=== PATIENT | male | born 1965 | race Caucasian/White ===

== ENCOUNTER 2025-03-12 11:36 | Outpatient (REF) | payer SELFPAY ==
--- NOTE | ~2025-03-12 | XR_ITS ---
EXAMINATION: XR FOOT, LEFT CLINICAL INFORMATION: Foot laceration, left, initial encounter COMPARISON: None available. TECHNIQUE: AP, lateral, and oblique views of the left foot. FINDINGS: No fracture, dislocation, or suspicious bone lesion. Normal bone mineralization. Normal alignment. Joint spaces are preserved. No significant arthropathy. Soft tissues appear normal. No radiopaque foreign body or soft tissue emphysema. XR/XR foot LT min 3V IMPRESSION: Normal left foot. Electronically signed by: Kevin Perry MD 03/12/2025 11:57 AM EDT
--- OUTSIDE RECORDS SUMMARY | 2025-03-12 11:43 | XMS_ITS | Clinical Summary ---
Author Organization [employer] Address [address] [facility] 7t [place] [address] Care Team Providers Care Case Technician Name Role Phone Megan Fofana [facility] Primary Care Provider [phone] Allergies No known active allergies Medications fluticasone (Flonase) 50 MCG/ACT nasal sprayIndications: COVID-19 Administer 1-2 sprays into each nostril Once per day. Shake gently. Before first use, prime pump. After use, clean tip and replace cap. 16 g 2 5 07/31/19 26 Active Blood Pressure kitIndications:El evated blood pressure reading in office without diagnosis of hypertension Use as directed 1 kit 5 Active ibuprofen 600 MG tabletIndications :COVID-19 TAKE 1 TABLET (600 MG) BY MOUTH EVERY 6 (SIX) HOURS IF NEEDED FOR MILD PAIN. 60 tablet 5 Active Active Problems No known active problems Encounters Date Type Department Care Team Description 03/12/2025 11:00 AM EDT Office Visit [facility] [address] [place] [phone] Foot laceration, left, initial encounter (Primary Dx) 03/12/2025 Travel 03/10/2025 Refill [facility] [address] [place] [address] Megan Fofana FNP COVID-19 02/19/2025 Telephone [facility] [address] [place] [address] Megan Fofana FNP 02/18/2025 Telephone [facility] [address] [place] [address] Megan Fofana FNP chart prep 12/23/2024 Telephone [facility] [address] [place] [address] Megan Fofana MEDICAL CENTER MANAGER Appointment Request 12/23/2024 Telephone [facility] [address] [facility] [place] [address] Megan Fofana FNP Appointment Request 12/22/2024 Telephone [facility] [address] [facility] [place] [address] Megan Fofana MEDICAL CENTER MANAGER chart prep from Last 3 Months Immunizations Immunization Administration Dates Next Due Tdap 09/28/2024,03/10/2009 Social History Tobacco Use Types Packs/Day Years Used Date Smoking Tobacco: Never Passive Smoke Exposure: Never Smokeless Tobacco: Never Tobacco Cessation:Counseling Given: Not Answered Depression Answer Date Recorded Patient Health Questionnaire-9 Score 0 09/28/2024 Patient Health Questionnaire-9 Score 0 09/28/2024 Last PHQ-9: Questionnaire Data Not on file 0 09/28/2024 Housing Stability Answer Date Recorded What is your housing situation today? I have danie ray 09/28/[address] you li ve. Do you have problems with any of the following? None of the above 09/28/2024 Food Insecurity Answer Date Recorded Within the past 12 months, y ou worried that your food would run out before you got money to buy more: Never True 09/28/2024 Within the past 12 months,th e food you bought just didn't last and you didn't have enough money to get more: Never True 04/2025 Transportation Answer Date Recorded In the past 12 months, has l ack of transportation kept you from medical appts, meetings, work or from getting things needed for daily living? No 09/28/2024 Utilities Answer Date Recorded In the past 12 months, has t he electric, gas, oil or water company threatened to shut off services in your home? No 09/28/2024 Depression Answer Date Recorded Patient Health Questionnaire-2 Score 0 09/28/2024 Internet Access Answer Date Recorded Internet Access Q1 Yes 09/28/2024 Internet Access Q2 Not on file 09/28/2024 Sex and Gender Information Value Date Recorded Sex Assigned at Male 07/03/2024 4:02 PM EST Legal Sex Male 10:33 AM EST Gender Identity Male 07/03/2024 4:02 PM EST Sexual Orientation Straight 07/31/2024 11 :59 AM EST Last Filed Vital Signs Vital Sign Reading Time Taken Comments Blood Pressure 147/87 03/12/2025 11:06 AM EDT Pulse 76 03/12/2025 11:06 AM EDT Temperature 36.8 C (98.3 F) 03/12/2025 11:06 AM EDT Respiratory Rate 18 03/12/2025 11:06 AM EDT Oxygen Saturation 97% 03/12/2025 11:06 AM EDT Inhaled Oxygen Concentration - - Weight 81.6 kg (180 lb) 03/12/2025 11:06 AM EDT Height 188 cm (6' 2 ) 09/28/2024 10:15 AM EDT Body Mass Index 23.11 09/28/2024 10:15 AM EDT Plan of Treatment Health Maintenance Due Date Last Done Comments CT Colonography 1967 Colonoscopy 1967 Colorectal Cancer Screening 1967 FIT DNA/Cologuard 1967 FIT 1967 FOBT 1967 HIV Screening 1965 Lipid Panel 1967 Sigmoidoscopy 1967 Disability Screening 1967 Alcohol/Substance Use Screening 1979 Hepatitis C Screening 09/25/1985 Hepatitis B Vaccines (1 of 3 - 19+ 3-dose series) 09/25/1986 Pneumococcal Vaccine: 50+ Years (1 of 1 - PCV) 09/25/2017 Zoster Vaccines (1 of 2) 09/25/2017 COVID-19 Vaccine ( - 2023-2 5 season) 2024 Influenza Vaccine (#1) 2025 Depression Screening 09/28/2025 09/28/2024, 09/28/2024 SDOH Screening 09/28/2025 09/28/2024 Tobacco Screening 03/12/2026 03/12/2025 DTaP/Tdap/Td Vaccines (3 - T d or Tdap) 09/28/2034 09/28/2024, 03/10/2009 RSV Patients and Patients Aged 60 years or older (1 - 1-dose 75+ series) 09/25/2042 HIB Vaccines Aged Out No longer eligi ble based on patient's age to complete this topic HPV Vaccines Aged Out No longer eligi ble based on patient's age to complete this topic Hepatitis A Vaccines Aged Out No long er eligible based on patient's age to complete this topic IPV Vaccines Aged Out No longer eligi ble based on patient's age to complete this topic Meningococcal B Vaccine Aged Out No l onger eligible based on patient's age to complete this topic Meningococcal Vaccine Aged Out No florian nikolai eligible based on patient's age to complete this topic RSV under 20 months Aged Out No longe r eligible based on patient's age to complete this topic Rotavirus Vaccines Aged Out No longer eligible based on patient's age to complete this topic Insurance [facility] C3 Care Teams Case Technician Relationship Specialty Start Date End Date Megan Fofana FNP [address] [place] [phone] PCP - General Family Medicine 07/31/24
== END 2025-03-12 11:37 | disposition home or self-care (01) ==
LOC: HO.HHCX 11:36
PROVIDERS: Visit Provider Family Medicine
DX: S91.312A Laceration without foreign body, left foot, initial encounter (principal)
CPT/HCPCS: 73630

== ENCOUNTER → 2025-03-12 11:41 | Outpatient (BNV) | payer MEDICAID, SELFPAY | PROVIDERS: Visit Provider Radiology Diagnostic Radiology | DX: S91.312A Laceration without foreign body, left foot, initial encounter (principal) | CPT/HCPCS: 73630 ==

== ENCOUNTER 2025-05-10 16:06 | Outpatient (REF) | payer MEDICAID, SELFPAY ==
--- OUTSIDE RECORDS SUMMARY | 2025-05-10 15:20 | XMS_ITS | Encounter Summary ---
Author Organization [employer] Address [address] [facility] 7t [place] [address] Care Team Providers Care Window Cutter Name Role Phone Megan Fofana [facility] Primary Care Provider [phone] Reason for Visit * Reason Comments Tick Removal Encounter Details Date Type Department Care Team ([facility] st Contact Info) Description 05/10/2025 3:20 PM EDT Office Visit [facility] [address] [place], [place] [phone] Social History Tobacco Use Types Packs/Day Years [...] Orientation Straight 07/31/2024 11 :59 AM EST documented as of this encounter Last Filed Vital Signs Vital Sign Reading Time Taken Comments Blood Pressure 126/80 05/10/2025 3:31 PM EDT Pulse 73 05/10/2025 3:31 PM EDT Temperature 36.8 C (98.2 F) 05/10/2025 3:31 PM EDT Respiratory Rate 16 05/10/2025 3:31 PM EDT Oxygen Saturation - - Inhaled Oxygen Concentration - - Weight 81.4 kg (179 lb 6.4 oz) 05/10/2025 3:31 P M EDT Height 188 cm (6' 2 ) 05/10/2025 3:31 PM EDT Body Mass Index 23.03 05/10/2025 3:31 PM EDT documented in this encounter Plan of Treatment Upcoming Encounters Date Type Department Care Team (Late st Contact Info) Description 05/31/2025 10:00 AM EST Office Visit [facility] [address] [place] [address] Megan Fofana FNP [address] [place] [address] documented as of this encounter Visit Diagnoses Not on filedocumented in this encounter Additional Health Concerns Assessment Noted Time PHQ-9 Depression Total Score: 0 09/29/19 10:16 AM EDT documented as of this encounter Care Teams Window Cutter Relationship Specialty Start Date End Date Megan Fofana FNP [address] [place] [address] PCP - General Family Medicine 07/31/24 documented as of this encounter
[2025-05-10 17:34] LABS: Alanine Aminotransferase 146 U/L (0-40); Albumin Level 4.4 g/dL (3.5-5.0); Alkaline Phosphatase 81 U/L (39-117); Anion Gap 13 (12-20); Aspartate Amino Transferase 196 U/L (5-37); Blood Urea Nitrogen 16 mg/dL (9-16); Calcium 8.7 mg/dL (8.4-10.2); Carbon Dioxide 29 mmol/L (22-29); Chloride 104 mmol/L (96-108); Cholesterol 219 mg/dL (<200); Estimated Glomerular Filt Rate > 60; HDL Cholesterol 35 mg/dL (>40); Potassium 3.8 mmol/L (3.3-5.1); Sodium 142 mmol/L (135-145); Total Protein 7.2 g/dL (6.5-8.0); Triglycerides 182 mg/dL (<150)
[2025-05-10 17:48] LABS: Prostate Specific Antigen 2.90 ng/mL (<0.05-4.0)
[2025-05-10 19:13] LABS: Free T4 (Free Thyroxine) 0.79 ng/dL (0.71-1.85)
--- OUTSIDE RECORDS SUMMARY | 2025-05-10 20:24 | XMS_ITS | Clinical Summary ---
Author Organization [email or web address] Address [address] [facility] 7t [place] [address] Care Team Providers Care Electric Razor Assembler Name Role Phone Megan Fofana [facility] Primary Care Provider [phone] Allergies No known active allergies Medications fluticasone (Flonase) 50 MCG/ACT nasal sprayIndications :COVID-19 Administer 1-2 sprays into each nostril Once per day. Shake gently. Before first use, prime pump. After use, clean tip and replace cap. 16 g 2 07/31/19 25 026 Active Blood Pressure kitIndications:E levated blood pressure reading in office without diagnosis of hypertension Use as directed 1 kit 09/29/19 25 Active ibuprofen 600 MG tabletIndication s:COVID-19 TAKE 1 TABLET (600 MG) BY MOUTH EVERY 6 (SIX) HOURS IF NEEDED FOR MILD PAIN. 60 tablet 04/12/20 25 Active doxycycline (Vibra-Tabs) 100 MG tablet Take 1 tablet (100 mg) by mouth 2 times daily for 10 days. Take with a full glass of water and do not lie down for at least 30 minutes after. 20 tablet 05/10/20 25 025 Active ibuprofen 600 MG tabletIndication s:COVID-19 TAKE 1 TABLET (600 MG) BY MOUTH EVERY 6 (SIX) HOURS IF NEEDED FOR MILD PAIN. 60 tablet 03/29/20 25 025 Discontinued Active Problems No known active problems Encounters Date Type Department Care Team Description 05/10/2025 3:20 PM EDT Office Visit [facility] [address] [place], [place] [phone] 05/10/2025 Travel 04/09/[address] [facility] [address] [place] [address] Megan Fofana [facility] COVID-19 04/02/2025 9:45 AM EDT Office Visit [facility]OMET[facility] [address] [place] [address] Myopia of both eyes (Primary Dx) 03/27/[address] [facility] [address] [place] [address] Megan Fofana FNP COVID-19 03/12/2025 11:00 AM EDT Office Visit [facility] [address] [place] [address] Bill Abad MD Foot laceration, left, initial encounter (Primary Dx) 03/12/2025 Travel 03/10/[address] [facility] [address] [place] [address] Megan Fofana FNP COVID-19 02/19/[address] [facility] [address] [place] [phone] Megan Fofana FNP 02/18/[address] [facility] [address] [place] [phone] Megan Fofana FNP chart prep from Last 3 Months Immunizations [...] 16 05/10/2025 3:31 PM EDT Oxygen Saturation 97% 03/12/2025 11:06 AM EDT Inhaled Oxygen Concentration - - Weight 81.4 kg (179 lb 6.4 oz) 05/10/2025 3:31 P M EDT Height 188 cm (6' 2 ) 05/10/2025 3:31 PM EDT Body Mass Index 23.03 05/10/2025 3:31 PM EDT Plan of Treatment Upcoming Encounters Date Type Department Care Team (Late st Contact Info) Description 05/31/2025 10:00 AM EST Office Visit [facility] [address] [place] [address] [facility] [address] [place] [address] Health Maintenance Due Date Last Done Comments CT Colonography 1967 Colonoscopy 1967 Colorectal Cancer Screening 1967 FIT DNA/Cologuard 1967 FIT 1967 FOBT 1967 HIV Screening 1967 Sigmoidoscopy 1967 Disability Screening 1967 Alcohol/Substance Use Screening 1979 Hepatitis C Screening 09/25/1985 Hepatitis B Vaccines (1 of 3 - 19+ 3-dose series) 09/25/1986 Pneumococcal Vaccine: 50+ Years (1 of 1 - PCV) 09/25/2017 Zoster Vaccines (1 of 2) 09/25/2017 COVID-19 Vaccine (1 - 2023-2 5 season) 2025 Influenza Vaccine (#1) 2025 Depression Screening 09/28/2025 09/28/2024, 09/28/2024 SDOH Screening 09/28/2025 09/28/2024 Tobacco Screening 05/10/2026 05/10/2025 Lipid Panel 05/10/2030 05/10/2025 DTaP/Tdap/Td Vaccines (3 - T d or [...] on patient's age to complete this topic Procedures Procedure Name Priority Date/Time Associated Diagnosis Comments T4, FREE Routine 05/10/2025 4:11 PM EDT Numbness and tingling in both hands PSA, TOTAL Routine 05/10/2025 4:11 PM EDT Healthcare maintenance LIPID PANEL, STANDARD Routine 05/10/2025 4:11 PM EDT Elevated blood pressure reading in office without diagnosis of hypertension COMPREHENSIVE METABOLIC PANEL Routine 05/10/2025 4:11 PM EDT Elevated blood pressure reading in office without diagnosis of hypertension TSH W/REFLEX TO FT4 Routine 05/10/2025 4 :11 PM EDT Thyroid dysfunction XR FOOT 3+ VIEWS LEFT Routine 03/12/2025 11:00 AM EDT Foot laceration, left, initial encounter from Last 3 Months Results * (ABNORMAL) TSH W/Reflex to FT4 (05/10/2025 4:11 PM EDT) TSH reflex Free T4 6.21(H) 0.32 - 4.0 uIU/mL [facility] Blood Venous blood specimen / Unknown 05/10/2025 4:11 PM EDT 05/10/2025 5:11 PM EDT [facility] LAB BLOOD ORDERABLES Final Re sult Performing Organization Address [facility]/ZIP Co de Phone Number [facility] [address] [place] [phone] * T4, Free (05/10/2025 4:11 PM EDT) Free T4 (Free Thyroxine) 0.79 0.71 - 1.85 ng/dL [facility] 05/10/2025 4:11 PM EDT 05/10/2025 5:11 PM EDT [facility] LAB BLOOD ORDERABLES Final Re sult Performing Organization Address City/[facility]/ZIP Co de Phone Number [facility] [address] [place] [phone] * PSA,Total (05/10/2025 4:11 PM EDT) Prostate Specific Antigen 2.90 <0.05 - 4.0 ng/mL [facility] Comment:PSA methodology: Abb julisa Alilakshmity i ChemiluminescentMicroparticle Immunoassay (CMIA) Blood Venous blood specimen / Unknown 05/10/2025 4:11 PM EDT 05/10/2025 5:11 PM EDT [facility] LAB BLOOD ORDERABLES Final Re sult Performing Organization Address City/[facility]/ZIP Co de Phone Number [facility] [address] [place] [address] [phone] * (ABNORMAL) Lipid Panel, Standard (05/10/2025 4:11 PM EDT) Triglycerides 182(H) <150 mg/dL [facility] Comment:Desirable Triglyceri de: less than 150 mg/dLBorderline High Triglyceride 150-199 mg/dLHigh Triglyceride: 200-499 mg/dLVery High Triglyceride: greater than or equal to 5OO mg/dL Cholesterol 219(H) <200 mg/dL [facility] Comment:Desirable Cholestero l: less than 200 mg/dLBorderline High Cholesterol: 200-239 mg/dLHigh Cholesterol: greater than 239 mg/dL LDL Cholesterol Calculated 148(H) <100 mg/dL [facility] Comment:Desirable LDL: less than 100 mg/dLNear Optimal/Above Optimal LDL: 110- 129 mg/dLBorderline High LDL: 130-159 mg/dLHigh LDL: 160-189 mg/dLVery High LDL: greater than or equal to 190 mg/dL HDL Cholesterol 35(L) >40 mg/dL [facility] Comment:Desirable HDL: great er than 40 mg/dL Note: This HDL assay may give artificially low results in patients with liver disease. Blood Venous blood specimen / Unknown 05/10/2025 4:11 PM EDT 05/10/2025 5:11 PM EDT [facility] LAB BLOOD ORDERABLES Final Re sult Performing Organization Address City/[facility]/ZIP Co de Phone Number [facility] [address] [place] [address] [phone] * (ABNORMAL) Comprehensive Metabolic Panel (05/10/2025 4:11 PM EDT) Sodium 142 135 - 145 mmol/L [facility] Potassium 3.8 3.3 - 5.1 mmol/L [facility] Chloride 104 96 - 108 mmol/L [facility] Carbon Dioxide 29 22 - 29 mmol/L [facility] Anion Gap 13 12 - 20 [facility] Urea Nitrogen (BUN) 16 9 - 16 mg/dL [facility] Creatinine, Serum 0.88 0.5 - 1.4 mg/dL [facility] Estimated Glomerular Filt Rate >60 [facility] Comment:Chronic Kidney Disea se: Estimated GFR < 60 mL/min/1.99c8Hhwgmq Kidney Disease: Estimated GFR < 15 mL/min/1.73m2 Glucose 101 60 - 115 mg/dL [facility] Calcium 8.7 8.4 - 10.2 mg/dL [facility] Bilirubin, Total 0.7 0.0 - 1.0 mg/dL [facility] Aspartate Amino Transferase 196(H) 5 - 37 U/L [facility] Alanine Aminotransferase 146(H) 0 - 40 U/L [facility] Total Protein 7.2 6.5 - 8.0 g/dL [facility] Albumin Level 4.4 3.5 - 5.0 g/dL [facility] Alkaline Phosphatase 81 39 - 117 U/L [facility] Blood Venous blood specimen / Unknown 05/10/2025 4:11 PM EDT 05/10/2025 5:11 PM EDT [facility] [employer] LAB BLOOD ORDERABLES Final Re sult [facility] [address] [place] [phone] [phone] * XR Foot 3+ Views Left (03/12/2025 11:00 AM EDT) Anatomical Region Laterality Modality Lower Extremities, Foot Left Radiogra phic Imaging 03/12/2025 11:0 0 AM EDT Narrative 03/12/2025 12:00 PM EDT [address] XRay Report Signed Patient: Caesar Eckert MR#: [id number] 7 : 1965 Acct:[id number] Age/Sex: 59 / M ADM Date: 03/12/25 Loc: HO.CX Attending Dr: Bill Abad MD Ordering Physician: Bill Abad MD Date of Service: 03/12/25 Procedure(s): XR foot LT min 3V Accession Number(s): [id number] cc: Bill Abad MD EXAMINATION: XR FOOT, LEFT CLINICAL INFORMATION: Foot laceration, left, initial encounter COMPARISON: None available. TECHNIQUE: AP, lateral, and oblique views of the left foot. FINDINGS: No fracture, dislocation, or suspicious bone lesion. Normal bone mineralization. Normal alignment. Joint spaces are preserved. No significant arthropathy. Soft tissues appear normal. No radiopaque foreign body or soft tissue emphysema. XR/XR foot LT min 3V IMPRESSION: Normal left foot. Electronically signed by: Kevin Perry MD 03/12/2025 11:57 AM EDT Dictated By: Kevin Perry MD Signed By: <Electronically signed by Kevin Perry MD in OV> 03/12/25 1157 DD/ 1100 TD/TT: 03/12/25 1148 Key Maker: Procedure Note Donotuseinterpreter, Image - 03/12/[address] [address] XRay Report Signed Patient: Caesar EckertMR#: [id number] 7 : 1965Acct:[id number] Age/Sex: 59 / MADM Date: 03/12/25 Loc: HO.CX Attending Dr: Bill Abad MD Ordering Physician: Bill Abad MD Date of Service: 03/12/25 Procedure(s): XR foot LT min 3V Accession Number(s): [id number] cc: Bill Abad MD EXAMINATION: XR FOOT, LEFT CLINICAL INFORMATION: Foot laceration, left, initial encounter COMPARISON: None available. TECHNIQUE: AP, lateral, and oblique views of the left foot. FINDINGS: No fracture, dislocation, or suspicious bone lesion. Normal bone mineralization. Normal alignment. Joint spaces are preserved. No significant arthropathy. Soft tissues appear normal. No radiopaque foreign body or soft tissue emphysema. XR/XR foot LT min 3V IMPRESSION: Normal left foot. Electronically signed by: Kevin Perry MD 03/12/2025 11:57 AM EDT RP Dictated By: Kevin Perry MD Signed By: <Electronically signed by Kevin Perry MD in OV> 03/12/25 1157 DD/ 1100 TD/TT: 03/12/25 1148 Key Maker: Bill Abad MD IMG XR PROCEDURES Final Result from Last 3 Months Insurance [facility] C3 Care Teams Electric Razor Assembler Relationship Specialty Start Date End Date Megan Fofana FNP [address] [place] [phone] PCP - General Family Medicine 07/31/24
--- OUTSIDE RECORDS SUMMARY | 2025-05-10 20:25 | XMS_ITS | Encounter Summary ---
Author Organization [employer] Address [address] [facility] 7t [place] [address] Care Team Providers Care Tight Barrel Inspector Name Role Phone Megan Fofana [facility] Primary Care Provider [phone] Reason for Visit * Reason Comments Med Refill Encounter Details Date Type Department Care Team (Late st Contact Info) Description 03/10/2025 Refill [facility] [address] [place], [place] [phone] Megan Fofana [facility] [address] [place], [place] [phone] COVID-19 Social History Tobacco Use Types Packs/Day Years Used Date Smoking Tobacco: Never Passive Smoke Exposure: Never Smokeless Tobacco: Never Depression Answer Date Recorded Patient Health Questionnaire-9 [...] AM EST documented as of this encounter Plan of Treatment Upcoming Encounters Date Type Department Care Team (Late st Contact Info) Description 05/31/2025 10:00 AM EST Office Visit [facility] [address] [place] [address] Megan Fofana FNP [address] [place] [address] documented as of this encounter Visit Diagnoses Diagnosis COVID-19 documented in this encounter Additional Health Concerns Assessment Noted Time PHQ-9 Depression Total Score: 0 09/29/19 10:16 AM EDT documented as of this encounter Care Teams Tight Barrel Inspector Relationship Specialty Start Date End Date Megan Fofana FNP [address] [place] [address] PCP - General Family Medicine 07/31/24 documented as of this encounter
--- OUTSIDE RECORDS SUMMARY | 2025-05-10 20:25 | XMS_ITS | Encounter Summary ---
Author Organization [employer] Address [address] [facility] 7t [place] [address] Care Team Providers Care Music Video Director Name Role Phone Megan Fofana [facility] Primary Care Provider [phone] Reason for Visit * Reason Onset Date Comments Appointment Request 12/23/2024 Encounter Details Date Type Department Care Team (Late st Contact Info) Description 12/23/2024 Telephone [facility] MEDIC[facility] [address] [place], [place] [phone] Megan FofanaSREEP [address] [place], [place] [phone] Appointment Request Social History Tobacco Use Types Packs/Day Years [...] AM EST documented as of this encounter Miscellaneous Notes * Telephone Encounter - Jackson Yuriy - 12/23/2024 9:07 AM EDT Tc from pt requesting to reschedule 30 min follow up. Please contact pt at [phone]. documented in this encounter Plan of Treatment Upcoming Encounters Date Type Department Care Team (Late st Contact Info) Description 05/31/2025 10:00 AM EST Office Visit [facility] [address] [place] [address] [facility] [address] [place] [address] documented as of this encounter Visit Diagnoses Not on filedocumented in this encounter Additional Health Concerns Assessment Noted Time PHQ-9 Depression Total Score: 0 09/29/19 10:16 AM EDT documented as of this encounter Care Teams Music Video Director Relationship Specialty Start Date End Date TomahMegan FNP [address] [place] [address] PCP - General Family Medicine 07/31/24 documented as of this encounter
--- OUTSIDE RECORDS SUMMARY | 2025-05-10 20:25 | XMS_ITS | Encounter Summary ---
Author Organization [employer] Address 75 [facility] 7t [place] [address] Care Team Providers Care Cnc Operator Name Role Phone Megan Fofana [facility] Primary Care Provider [phone] Encounter Details Date Type Department Care Team (Latest Contact Info) Description 05/10/2025 Travel Social History Tobacco Use Types Packs/Day Years [...] Description 05/31/2025 10:00 AM EST Office Visit [facility] MEDIC[facility] [address] [place] [address] Megan Fofana FNP [address] [place] [address] documented as of this encounter Visit Diagnoses Not on filedocumented in this encounter Additional Health Concerns Assessment Noted Time PHQ-9 Depression Total Score: 0 09/29/19 10:16 AM EDT documented as of this encounter Care Teams Cnc Operator Relationship Specialty Start Date End Date Megan Fofana FNP [address] [place] [phone] PCP - General Family Medicine 07/31/24 documented as of this encounter
[2025-05-11 12:08] LABS: Syphilis Screen Nonreactive (Nonreactive)
[2025-05-11 13:28] LABS: HBS Num1 0.00 mIU/mL (0-7.99); HBc Num1 0.07 S/CO (0.00-0.79); HBsAGNum1 0.38 S/CO (0.00-0.99); HIV Num 1 0.24 S/CO (0.00-0.99); Hepatitis A Antibody IgM 0.14 Index (0-0.79); Hepatitis B Surface Antigen Negative (Negative); ~HepC Num1 0.11 S/CO (0.00-0.79); ~Hepatitis A Antibody IgM Nonreactive (Nonreactive); ~Hepatitis B Surface Antibody NONREACTIVE (Nonreactive); ~Hepatitis C Antibody Nonreactive (Nonreactive)
== END 2025-05-10 16:07 | disposition home or self-care (01) ==
LOC: HO.HHCL 16:06
PROVIDERS: PCP Registered Nurse; Visit Provider Registered Nurse
DX: Z00.00 Encounter for general adult medical examination without abnormal findings (principal); R03.0 Elevated blood-pressure reading, without diagnosis of hypertension; Z11.4 Encounter for screening for human immunodeficiency virus [HIV]; Z11.59 Encounter for screening for other viral diseases; E07.9 Disorder of thyroid, unspecified; Z11.3 Encounter for screening for infections with a predominantly sexual mode of transmission
CPT/HCPCS: 36415; 80053; 80061; 84153; 84439; 84443; 86704; 86706; 86709; 86780; 86803; 87340; 87389

== ENCOUNTER 2025-05-31 11:41 | Outpatient (REF) | payer MEDICAID, SELFPAY ==
--- OUTSIDE RECORDS SUMMARY | 2025-05-31 10:00 | XMS_ITS | Encounter Summary ---
Author Organization [employer] Address 75 [facility] 7t [place] [address] Care Team Providers Care Form Setter Steel Pan Forms Name Role Phone Megan Fofana Primary Care Provider [phone] Reason for Referral * Imaging (Routine) - Authorized Specialty Diagnoses / Procedures Referred By Contrussell t Referred To Contact Radiology Diagnoses Elevated liver enzymes Procedures US Abdomen Complete Megan Fofana FNP [address] [place] [address] Phone: tel: fax: [address] Phone: tel: fax: Referral ID Status Reason Start Date Expiration Date V isits Requested Visits Authorized [id number] Authorized 05/31/2025 05/31/2026 1 1 Reason for Visit * Reason Comments Follow-up Encounter Details Date Type Department Care Team ([facility] st Contact Info) Description 05/31/2025 10:00 AM EST Office Visit [facility] MED[facility] [address] [place] [address] Megan Fofana FNP [address] [place] [address] Elevated liver enzymes (Primary Dx); Primary hypertension; Thyroid dysfunction; Elevated cholesterol; Alcohol use disorder Social History Tobacco Use Types Packs/Day Years Used Date Smoking Tobacco: Never Passive Smoke Exposure: Never Smokeless Tobacco: Never Tobacco Cessation:Counseling Given: Not Answered Alcohol Answer Date Recorded How often do you have a drink containing alcohol ? 4 05/31/2025 How many drinks containing a lcohol do you have on a typical day when you are drinking? 0 05/31/2025 How often do you have six or more drinks on one occasion? 1 05/31/2025 Depression Answer Date Recorded Patient Health Questionnaire-9 Score 2 05/31/2025 Patient Health Questionnaire-9 Score 2 05/31/2025 Last PHQ-9: Questionnaire Data Not on file 1 07/31/2024 Housing Stability Answer Date Recorded What is [...] Date Recorded Patient Health Questionnaire-2 Score 0 05/31/2025 Internet Access Answer Date Recorded Internet Access [...] Sign Reading Time Taken Comments Blood Pressure 162/108 05/31/2025 10:09 AM EST Pulse 88 05/31/2025 10:09 AM EST Temperature 36.1 C (97 F) 05/31/2025 10:09 AM EST Respiratory Rate 19 05/31/2025 10:09 AM EST Oxygen Saturation - - Inhaled Oxygen Concentration - - Weight 83.5 kg (184 lb) 05/31/2025 10:09 AM EST Height 188 cm (6' 2 ) 05/31/2025 10:09 AM EST Body Mass Index 23.62 05/31/2025 10:09 AM EST documented in this encounter Functional Status * Over the past 2 weeks, how often have you been bothered by any of the following problems? Question Answer Date of Assessment Author Patient Health Questionnaire-2 Score 0 05/31/2025 11:05 AM Sisi Justice [place] * Little interest or pleasure in doing things Answer Date of Assessment Author Not at all 05/31/2025 11:05 AM Sisi Ang [place] * Feeling down, depressed, or hopeless Answer Date of Assessment Author Not at all 05/31/2025 11:05 AM Sisi Ang [place] * Trouble falling or staying asleep, or sleeping too much Answer Date of Assessment Author Not at all 05/31/2025 11:05 AM Sisi Ang [place] * Feeling tired or having little energy Answer Date of Assessment Author More than half the days 05/31/2025 11:05 AM Sisi Estrada [place] * Poor appetite or overeating Answer Date of Assessment Author Not at all 05/31/2025 11:05 AM Sisi Ang [place] * Feeling bad about yourself - or that you are a failure or have let yourself or your family down Answer Date of Assessment Author Not at all 05/31/2025 11:05 AM Sisi Ang [place] * Trouble concentrating on things, such as reading the newspaper or watching television Answer Date of Assessment Author Not at all 05/31/2025 11:05 AM Sisi Ang [place] * Moving or speaking so slowly that other people could have noticed? Or the opposite - being so fidgety or restless that you have been moving around a lot more than usual. Answer Date of Assessment Author Not at all 05/31/2025 11:05 AM Sisi Ang [place] * Thoughts that you would be better off or hurting yourself in some way Answer Date of Assessment Author Not at all 05/31/2025 11:05 AM Siis Ang [place] * Patient Health Questionnaire-9 Score Answer Date of Assessment Author 2 05/31/2025 11:05 AM Sisi Ang [place] * Over the last 2 weeks, how often have you been bothered by any of the following problems? Question Answer Date of Assessment Author Feeling nervous, anxious, or on edge 0 05/31/2025 11:42 AM EST Luis Miguel Bustamante Not being able to stop or control worrying 0 05/31/2025 11:42 AM EST Luis Miguel Bustamante Worrying too much about different things 2 05/31/2025 11:42 AM EST Luis Miguel Bustamante Trouble relaxing 1 05/31/2025 11:42 AM EST Luis Miguel Salas Being so restless that it is hard to sit still 0 05/31/2025 11:42 AM EST Luis Miguel Bustamante Becoming easily annoyed or irritable 0 05/31/2025 11:42 AM EST Luis Miguel Bustamante Feeling afraid as if something awful might happen 0 05/31/2025 11:42 AM EST Luis Miguel Gómez HOLDEN-7 Total Score 3 05/31/2025 11:42 AM Luis Miguel George documented as of this encounter Patient Instructions * Patient Instructions* Sisi Serra MA - 05/31/2025 10:00 AM EST Centralized Scheduling [phone] for Nerve conduction study documented in this encounter Plan of Treatment Upcoming Encounters Date Type Department Care Team (Late st Contact Info) Description 06/16/2025 11:30 AM EST Clinical Support [facility] [address] [place] [address] 06/28/2025 9:45 AM EST Office Visit [facility] [address] [place] [address] Megan Fofana FNP [address] [place] [address] Scheduled Orders Name Type Priority Associated Diagnoses Orde r Schedule US Abdomen Complete Imaging Routine Elevated liver enzymes Expected: 05/31/2025, Expires: 05/31/2026 TSH W/Reflex to FT4 Lab Routine Thyroid dysfunction Expected: 05/31/2025 (Approximate), Expires: 05/31/2026 documented as of this encounter Visit Diagnoses Diagnosis Elevated liver enzymes- Primary Other nonspecific abnormal serum enzyme levels Primary hypertension Unspecified essential hypertension Thyroid dysfunction Unspecified disorder of thyroid Elevated cholesterol Pure hypercholesterolemia Alcohol use disorder documented in this encounter Additional Health Concerns Assessment Noted Time PHQ-9 Depression Total Score: 2 05/31/20 11:05 AM EST documented as of this encounter Care Teams Form Setter Steel Pan Forms Relationship Specialty Start Date End Date Megan Fofana FNP [address] [place] [address] PCP - General Family Medicine 07/31/24 documented as of this encounter
--- OUTSIDE RECORDS SUMMARY | 2025-05-31 14:08 | XMS_ITS | Clinical Summary ---
Author Organization [employer] Address 75 [facility] 7t [place] [address] Care Team Providers Care [employer] Police Name Role Phone Megan Fofana [facility] Primary Care Provider [phone] Allergies No known active allergies Medications * This document contains information received from the source organization and may not represent a complete record from that organization. fluticasone (Flonase) 50 MCG/ACT nasal sprayIndication s:COVID-19 Administer 1-2 sprays into each nostril Once per day. Shake gently. Before first use, prime pump. After use, clean tip and replace cap. 16 g 2 07/31/19 25 026 Active Blood Pressure kitIndications: Elevated blood pressure reading in office without diagnosis of hypertension Use as directed 1 kit 09/29/19 25 Active ibuprofen 600 MG tabletIndicatio ns:COVID-19 TAKE 1 TABLET (600 MG) BY MOUTH EVERY 6 (SIX) HOURS IF NEEDED FOR MILD PAIN. 60 tablet 05/24/20 25 Active Blood Pressure kitIndications: Primary hypertension Use as directed 1 kit 05/31/20 25 Active olmesartan (Benicar) 5 MG tabletIndicatio ns:Primary hypertension Take 1 tablet (5 mg) by mouth Once per day. 30 tablet 3 05/31/20 25 026 Active ibuprofen 600 MG tabletIndicatio ns:COVID-19 TAKE 1 TABLET (600 MG) BY MOUTH EVERY 6 (SIX) HOURS IF NEEDED FOR MILD PAIN. 60 tablet 04/12/20 25 025 Discontinued doxycycline (Vibra-Tabs) 100 MG tabletIndicatio ns:Erythema migrans (Lyme disease),Tick bite of left upper arm with infection, initial encounter Take 1 tablet (100 mg) by mouth 2 times daily for 10 days. Take with a full glass of water and do not lie down for at least 30 minutes after. 20 tablet 05/10/20 25 025 olmesartan (Benicar) 5 MG tabletIndicatio ns:Primary hypertension Take 1 tablet (5 mg) by mouth Once per day. 30 tablet 3 05/31/20 25 025 Discontinued(R eorder (will not trigger notification to Pharmacy)) Active Problems Problem Noted Date Diagnosed Date Elevated liver enzymes 05/31/2025 Secondary hypertension 05/31/2025 Elevated cholesterol 05/31/2025 Alcohol use disorder 05/31/2025 Thyroid dysfunction 05/31/2025 Anxiety about health 05/31/2025 Encounters * This document contains information received from the source organization and may not represent a complete record from that organization. Date Type Department Care Team Description 05/31/2025 10:00 AM EST Office Visit [facility] [address] [place] [phone] BrigidoMegan lopez FNP Elevated liver enzymes (Primary Dx); Primary hypertension; Thyroid dysfunction; Elevated cholesterol; Alcohol use disorder 05/31/2025 Travel 05/23/2025 Refill [facility] [address] [place] [phone] MeridianMegan [facility] COVID-19 05/11/2025 Results Follow-Up [facility] [address] [address] Fina Hager MD Comprehensive Metabolic Panel, Lipid Panel, Standard, HIV-1/2 Antigen and Antibodies, Fourth Generation, with Reflexes, Additional followed-up results: 3 05/10/2025 3:20 PM EDT Office Visit [facility] [address] [place] [address] Anna Yepez, BOTTOM SCRUBBER Erythema migrans (Lyme disease) (Primary Dx); Tick bite of left side of chest wall, initial encounter; Tick bite of left upper arm with infection, initial encounter 05/10/2025 Travel 04/09/2025 Refill [facility] [address] [place] [phone] MeridianMegan [employer] COVID-19 04/02/2025 9:45 AM EDT Office Visit [facility] OPTOMETRY [address] [place] [address] Myopia of both eyes (Primary Dx) 03/27/2025 Refill [facility] [address] [place] [address] Megan Fofana FNP COVID-19 03/12/2025 11:00 AM EDT Office Visit [facility] [address] [place] [address] Bill Abad MD Foot laceration, left, initial encounter (Primary Dx) 03/12/2025 Travel 03/10/2025 Refill [facility] [address] [place] [address] Megan Fofana FNP COVID-19 from Last 3 Months Immunizations Immunization Administration [...] 19 05/31/2025 10:09 AM EST Oxygen Saturation 97% 03/12/2025 11:06 AM EDT Inhaled Oxygen Concentration - - Weight 83.5 kg (184 lb) 05/31/2025 10:09 AM EST Height 188 cm (6' 2 ) 05/31/2025 10:09 AM EST Body Mass Index 23.62 05/31/2025 10:09 AM EST Plan of Treatment Upcoming Encounters Date Type Department Care Team (Late st Contact Info) Description 06/16/2025 11:30 AM EST Clinical Support [facility] [address] [place] [address] 06/28/2025 9:45 AM EST Office Visit [facility] [address] [place] [address] [facility] [address] [place] [address] Health Maintenance Due Date Last Done Comments CT Colonography 1965 Colonoscopy 1965 Colorectal Cancer Screening 1965 FIT DNA/Cologuard 1967 FIT 1965 FOBT 1965 Sigmoidoscopy 1965 Hepatitis B Vaccines (1 of 3 - 19+ 3-dose series) 09/25/1986 Pneumococcal Vaccine: 50+ Years (1 of 1 - PCV) 09/25/2017 Zoster Vaccines (1 of 2) 09/25/2017 COVID-19 Vaccine (1 - 2023-2 5 season) 2025 Influenza Vaccine (#1) 2025 SDOH Screening 09/28/2025 09/28/2024 Alcohol/Substance Use Screening 05/31/2026 05/31/2025 Depression Screening 05/31/2026 05/31/2025, 05/31/2025 Disability Screening 05/31/2026 05/31/2025 Tobacco Screening 05/31/2026 05/31/2025 Lipid Panel 05/10/2030 05/10/2025 DTaP/Tdap/Td Vaccines (3 - T d or Tdap) 09/28/2034 09/28/2024, 03/10/2009 RSV Patients and Patients Aged 60 years or older (1 - 1-dose 75+ series) 09/25/2042 HIV Screening Completed 05/10/2025 Hepatitis C Screening Completed 05/10/2025 HIB Vaccines Aged Out No longer eligi [...] Routine 05/10/2025 4:11 PM EDT Healthcare maintenance SYPHILIS SCREEN Routine 05/10/2025 4:11 PM EDT Healthcare maintenance HEPATITIS PANEL, GENERAL Routine 05/10/2025 4:11 PM EDT Healthcare maintenance HIV 1/2 ANTIGEN/ANTIBODY, FOURTH GENERATION W/RFL Routine 05/10/2025 4:11 PM EDT Healthcare maintenance [...] encounter from Last 3 Months Results * Syphilis Screen (05/10/2025 4:11 PM EDT) Syphilis Screen Nonreactive Nonreactive [facility] Blood 05/10/2025 4:11 PM EDT 05/10/2025 5:11 PM EDT [facility] LAB BLOOD ORDERABLES Final Re sult [facility] [address] [place] [phone] * (ABNORMAL) TSH W/Reflex to FT4 (05/10/2025 4:11 PM EDT) TSH reflex Free T4 6.21(H) 0.32 - 4.0 uIU/mL [facility] Blood Venous blood specimen / Unknown 05/10/2025 4:11 PM EDT 05/10/2025 5:11 PM EDT [facility] LAB BLOOD ORDERABLES Final Re sult Performing Organization Address [facility]/ZIP Co de Phone Number [facility] [address] [place] [address] [phone] * Hepatitis A,B,C Profile (05/10/2025 4:11 PM EDT) Hepatitis A IgM Nonreactive Nonreactive [facility] Comment:IgM antibodies to GARCIA V not detected; does not exclude earlyacute or recovered HAV infection. ~Hepatitis B Surface Antibody NONREACTIVE Nonreactive [facility] Comment:Nonreactive: < 8.00 mIU/mL Hepatitis B Core Antibody Nonreactive Nonreactive [facility] Hepatitis C Antibody Nonreactive Nonreactive [facility] Comment:Antibodies to HCV no t detected; does not exclude early acuteHCV infection. Hepatitis B Surface Ag Negative Negative [facility] Blood Venous blood specimen / Unknown 05/10/2025 4:11 PM EDT 05/10/2025 5:11 PM EDT [facility] LAB BLOOD ORDERABLES Final Re sult Performing Organization Address [facility] Co de Phone Number [facility] [address] [place] [address] [phone] * HIV-1/2 Antigen and Antibodies, Fourth Generation, with Reflexes (05/10/2025 4:11 PM EDT) HIV AB/AG Nonreactive Nonreactive [facility] Comment:HIV-1 p24 Ag and/or HIV-1/HIV-2 Ab not detected.A test result that is nonreactive does not exclude thepossibility of exposure to or infection with HIV-1 and/orHIV-2. Nonreactive results in this assay for individualswith prior exposure to HIV-1 and/or HIV-2 may be due toantigen and antibody levels that are below the limit ofdetection of this assay.The 51 Auto HIV Ag/Ab Combo assay result andsupplemental assay results should be interpreted inconjunction with the patient's clinical presentation,history and other laboratory results. If the results areinconsistent with clinical evidence, additional testing issuggested to confirm the result. Blood Venous blood specimen / Unknown 05/10/2025 4:11 PM EDT 05/10/2025 5:11 PM EDT [facility] LAB BLOOD ORDERABLES Final Re sult Performing Organization Address City/[facility]/ZIP Co de Phone Number [facility] [address] [place] [phone] * T4, Free (05/10/2025 4:11 PM EDT) Free T4 (Free Thyroxine) 0.79 0.71 - 1.85 ng/dL [facility] 05/10/2025 4:11 PM EDT 05/10/2025 5:11 PM EDT [facility] LAB BLOOD ORDERABLES Final Re sult Performing Organization Address [facility] Co de Phone Number [facility] [address] [place] [phone] * PSA,Total (05/10/2025 4:11 PM EDT) Prostate Specific Antigen 2.90 <0.05 - 4.0 ng/mL [facility] Comment:PSA methodology: Lei Bowen i ChemiluminescentMicroparticle Immunoassay (CMIA) Blood Venous blood specimen / Unknown 05/10/2025 4:11 PM EDT 05/10/2025 5:11 PM EDT [facility] LAB BLOOD ORDERABLES Final Re sult Performing Organization Address [facility] Co de Phone Number [facility] [address] [place] [phone] * (ABNORMAL) Lipid Panel, Standard (05/10/2025 4:11 PM EDT) Triglycerides 182(H) <150 mg/dL [facility] Comment:Desirable Triglyceri de: less than 150 mg/dLBorderline High Triglyceride 150-199 mg/dLHigh Triglyceride: 200-499 mg/dLVery High Triglyceride: greater than or equal to 5OO mg/dL Cholesterol 219(H) <200 mg/dL [facility] Comment:Desirable Cholestero l: less than 200 mg/dLBorderline High Cholesterol: 200-239 mg/dLHigh Cholesterol: greater than 239 mg/dL LDL Cholesterol Calculated 148(H) <100 mg/dL [facility] Comment:Desirable LDL: less than 100 mg/dLNear Optimal/Above Optimal LDL: 110- 129 mg/dLBorderline High LDL: 130-159 mg/dLHigh LDL: 160-189 mg/dLVery High LDL: greater than or equal to 190 mg/dL HDL Cholesterol 35(L) >40 mg/dL [facility] Comment:Desirable HDL: great er than 40 mg/dL Note: This HDL assay may give artificially low results in patients with liver disease. Blood Venous blood specimen / Unknown 05/10/2025 4:11 PM EDT 05/10/2025 5:11 PM EDT [facility] LAB BLOOD ORDERABLES Final Re sult [facility] [address] [place] [phone] * (ABNORMAL) Comprehensive Metabolic Panel (05/10/2025 4:11 PM EDT) Sodium 142 135 - 145 mmol/L [facility] Potassium 3.8 3.3 - 5.1 mmol/L [facility] Chloride 104 96 - 108 mmol/L [facility] Carbon Dioxide 29 22 - 29 mmol/L [facility] Anion Gap 13 12 - 20 [facility] Urea Nitrogen (BUN) 16 9 - 16 mg/dL [facility] Creatinine, Serum 0.88 0.5 - 1.4 mg/dL [facility] Estimated Glomerular Filt Rate >60 [facility] Comment:Chronic Kidney Disea se: Estimated GFR < 60 mL/min/1.98u3Xxncmr Kidney Disease: Estimated GFR < 15 mL/min/1.73m2 Glucose 101 60 - 115 mg/dL [facility] Calcium 8.7 8.4 - 10.2 mg/dL [facility] Bilirubin, Total 0.7 0.0 - 1.0 mg/dL [facility] Aspartate Amino Transferase 196(H) 5 - 37 U/L [facility] Alanine Aminotransferase 146(H) 0 - 40 U/L [facility] Total Protein 7.2 6.5 - 8.0 g/dL [facility] Albumin Level 4.4 3.5 - 5.0 g/dL [facility] Alkaline Phosphatase 81 39 - 117 U/L [facility] Blood Venous blood specimen / Unknown 05/10/2025 4:11 PM EDT 05/10/2025 5:11 PM EDT [facility] [employer] LAB BLOOD ORDERABLES Final Re sult Performing Organization Address City/State/[facility] Co de Phone Number [facility] [address] [place] [address] [phone] * XR Foot 3+ Views Left (03/12/2025 11:00 AM EDT) Anatomical Region Laterality Modality Lower Extremities, Foot Left Radiogra phic Imaging 03/12/2025 11:0 0 AM EDT Narrative 03/12/2025 12:00 PM EDT [address] [address] XRay Report Signed Patient: Caesar Eckert MR#: [id number] 7 : 1965 Acct:[id number] Age/Sex: 59 / M ADM Date: 03/12/25 Loc: HO.HHCX Attending Dr: Bill Abad MD Ordering Physician: Bill Abad MD Date of Service: 03/12/25 Procedure(s): XR foot LT min 3V Accession Number(s): [id number] cc: Bill Abad MD EXAMINATION: XR FOOT, [...] 03/12/25 1157 DD/ 1100 TD/TT: 03/12/25 1148 Mammalogy Teacher: Procedure Note Donotuseinterpreter, Image - 03/12/2025 [place] [address] XRay Report Signed Patient: Caesar EckertMR#: [id number] 7 : 1965Acct:[id number] Age/Sex: 59 / MADM Date: 03/12/25 Loc: HO.HHCX Attending Dr: Bill Abad MD Ordering Physician: Bill Abad MD Date of Service: 03/12/25 Procedure(s): XR foot LT min 3V Accession Number(s): [id number] cc: Bill Abad MD EXAMINATION: XR FOOT, [...] 03/12/25 1157 DD/ 1100 TD/TT: 03/12/25 1148 Mammalogy Teacher: Bill Abad MD IMG XR PROCEDURES Final Result from Last 3 Months Insurance [facility] C3 Care Teams [employer] Relationship Specialty Start Date End Date Megan Fofana FNP [address] [place] [phone] PCP - General Family Medicine 07/31/24
--- OUTSIDE RECORDS SUMMARY | 2025-05-31 14:08 | XMS_ITS | Encounter Summary ---
Author Organization [employer] Address [address] [facility] 7t [place] [address] Care Team Providers Care Jewelry Polisher Name Role Phone Megan Fofana [facility] Primary Care Provider [phone] Reason for Visit * Reason Onset Date Comments Appointment Request 12/23/2024 Encounter Details Date Type Department Care Team (Late st Contact Info) Description 12/23/2024 Telephone [facility] [address] [place], [place] [phone] Megan FofanaSREEP [address] [place], [place] [phone] Appointment Request Social History Tobacco Use Types [...] min follow up. Please contact pt at [phone]. documented in this encounter Plan of Treatment Upcoming Encounters Date Type Department Care Team (Late st Contact Info) Description 06/16/2025 11:30 AM EST Clinical Support [address] [address] 06/28/2025 9:45 AM EST Office Visit [address] [address] Megan Foafna FNP [address] [place] [address] documented as of this encounter Visit Diagnoses Not on filedocumented in this encounter Additional Health Concerns Assessment Noted Time PHQ-9 Depression Total Score: 0 09/29/19 10:16 AM EDT documented as of this encounter Care Teams Jewelry Polisher Relationship Specialty Start Date End Date Megan Fofana FNP [address] [place] [address] PCP - General Family Medicine 07/31/24 documented as of this encounter
--- OUTSIDE RECORDS SUMMARY | 2025-05-31 14:08 | XMS_ITS | Encounter Summary ---
Author Organization [email or web address] Address [address] [facility] 7t [place] [address] Care Team Providers Care Journeyman Power Plant Operator Name Role Phone Megan Fofana [facility] Primary Care Provider [phone] Reason for Visit * Reason Comments Med Refill Encounter Details Date Type Department Care Team (Late st Contact Info) Description 03/10/2025 Refill [facility] [address] [place], [place] [phone] Megan Fofana [facility] [address] [place], [place] [phone] COVID-19 Social History Tobacco Use Types Packs/Day [...] Description 06/16/2025 11:30 AM EST Clinical Support [address] [address] 06/28/2025 9:45 AM EST Office Visit [address] [address] Megan Fofana FNP [address] [place] [address] documented as of this encounter Visit Diagnoses Diagnosis COVID-19 documented in this encounter Additional Health Concerns Assessment Noted Time PHQ-9 Depression Total Score: 0 09/29/19 25 10:16 AM EDT documented as of this encounter Care Teams Journeyman Power Plant Operator Relationship Specialty Start Date End Date Megan Fofana FNP [address] [place] [phone] PCP - General Family Medicine 07/31/24 documented as of this encounter
--- OUTSIDE RECORDS SUMMARY | 2025-05-31 14:08 | XMS_ITS | Encounter Summary ---
Author Organization [employer] Address [address] [place] [address] Care Team Providers Care Outside Machinist Supervisor Name Role Phone Megan Fofana [facility] Primary Care Provider [phone] Encounter Details Date Type Department Care Team (Latest Contact Info) Description 05/31/2025 Travel Social History Tobacco Use Types Packs/Day Years Used Date Smoking Tobacco: Never Passive Smoke Exposure: Never Smokeless Tobacco: Never Alcohol Answer Date Recorded How often do [...] is your housing situation today? I have daniemelba ray 09/28/[address] you [...] AM EST documented as of this encounter Functional Status * Over the past 2 weeks, how often have you been bothered by any of the following problems? Question Answer Date of Assessment Author Patient Health Questionnaire-2 Score 0 05/31/2025 11:05 AM Sisi Jsutice [place] * Little interest or pleasure in [...] 05/31/2025 11:05 AM Sisi Ang [place] * Patient Health Questionnaire-9 Score Answer Date of Assessment Author 2 05/31/2025 11:05 AM Sisi Ang [place] * Over the last 2 weeks, how often have you been bothered by any of the following problems? Question Answer Date of Assessment Author Feeling nervous, anxious, or on edge 0 05/31/2025 11:42 AM Luis Miguel Carlson Not being able to stop or control worrying 0 05/31/2025 11:42 AM Luis Miguel Carlosn Worrying too much about different things 2 05/31/2025 11:42 AM Luis Miguel Carlson Trouble relaxing 1 05/31/2025 11:42 AM Luis Miguel George Being so restless that it is hard to sit still 0 05/31/2025 11:42 AM Luis Miguel Carlson Becoming easily annoyed or irritable 0 05/31/2025 11:42 AM Luis Miguel Carlson Feeling afraid as if something awful might happen 0 05/31/2025 11:42 AM Luis Miguel Rutledge HOLDEN-7 Total Score 3 05/31/2025 11:42 AM Luis Miguel George documented as of this encounter Plan of Treatment Upcoming Encounters Date Type Department Care Team (Late st Contact Info) Description 06/16/2025 11:30 AM EST Clinical Support [facility] [address] [place] [phone] 06/28/2025 9:45 AM EST Office Visit [facility] [address] [place] [phone] InlandMegan lopez, [employer]ELOPER [address] [place] [address] documented as of this encounter Visit Diagnoses Not on filedocumented in this encounter Additional Health Concerns Assessment Noted Time PHQ-9 Depression Total Score: 2 05/31/20 25 11:05 AM EST documented as of this encounter Care Teams Outside Machinist Supervisor Relationship Specialty Start Date End Date Megan Fofana FNP [address] [place] [address] PCP - General Family Medicine 07/31/24 documented as of this encounter
[2025-05-31 16:49] LABS: Alanine Aminotransferase 169 U/L (0-40); Albumin Level 4.7 g/dL (3.5-5.0); Alkaline Phosphatase 97 U/L (39-117); Aspartate Amino Transferase 218 U/L (5-37); Ferritin 833 ng/mL (20-250); Iron 234 mcg/dL (45-160); Percent Iron Saturation 59 % (15-50); Total Iron Binding Capacity 396 mcg/dL (228-428); Total Protein 7.9 g/dL (6.5-8.0); Unsaturated Iron Binding 162 ug/dL
[2025-05-31 18:05] LABS: Free T4 (Free Thyroxine) 0.79 ng/dL (0.71-1.85)
[2025-06-01 06:52] LABS: HBS Num1 0.00 mIU/mL (0-7.99); HBc Num1 0.10 S/CO (0.00-0.79); HBsAGNum1 0.37 S/CO (0.00-0.99); Hepatitis A Antibody IgM 0.16 Index (0-0.79); Hepatitis B Surface Antigen Negative (Negative); ~HepC Num1 0.12 S/CO (0.00-0.79); ~Hepatitis A Antibody IgM Nonreactive (Nonreactive); ~Hepatitis B Surface Antibody NONREACTIVE (Nonreactive); ~Hepatitis C Antibody Nonreactive (Nonreactive)
== END 2025-05-31 11:42 | disposition home or self-care (01) ==
LOC: HO.HHCL 11:41
PROVIDERS: Family Medicine; PCP Registered Nurse; Referring Provider Family Medicine; Visit Provider Registered Nurse
DX: Z11.59 Encounter for screening for other viral diseases (principal); E07.9 Disorder of thyroid, unspecified; R74.01 Elevation of levels of liver transaminase levels
CPT/HCPCS: 36415; 80076; 82390; 82728; 83540; 84439; 84443; 86704; 86706; 86709; 86803; 87340